=== PATIENT | male | born 1960 | race Caucasian/White ===

== ENCOUNTER 2016-08-08 12:44 | Day surgery (SDC) | payer MEDICARE ==
[~2016-08-08 12:44] MED LIST: DIPRIVAN 200 MG/20 ML IV ONE; Depo-Medrol 80 MG/ML IM ONE; KEFZOL 1 GM IJ ONE; Ketamine HCl 50 MG/ML IV ONE; SUBLIMAZE 100 MCG/2 ML IV ONE; Sensorcaine 0.25% 10 ML IJ ONE; Sodium Chloride 0.9(Preservative Free) 10 ML IJ ONE
[2016-08-08] MEDS ORDERED: Lactated Ringers 1,000 ML IV SCH (13:30)
[2016-08-08 14:06] VITALS: BP 154/95; PULSE 63; O2SAT 96
--- NOTE | 2016-08-08 16:42 | XRAY ---
31 seconds fluoro time in surgery for L4-L5 translaminar FRAN.
--- NOTE | 2016-08-08 16:53 | XRAY ---
Indication: Left L4-L5 FRAN. Intraoperative fluoroscopy was provided for 31 seconds. Single lateral digital spot image of the lumbosacral junction submitted for interpretation demonstrates posterior spinal needle with the tip projecting posterior to the lumbosacral interspace. Small amount of contrast injected for needle tip placement. Correlate with intraoperative findings/report.
== END 2016-08-08 16:10 | disposition home or self-care (01) ==
LOC: SDC-PAIN 12:44
PROVIDERS: ATTEND Pain Medicine Interventional Pain Medicine
DX: M54.16 Radiculopathy, lumbar region (principal); M48.06 Spinal stenosis, lumbar region; M54.5 Low back pain
CPT/HCPCS: 01992; 62323; 72020; 77003; J0690; J1040; J2704; J3010; Q9967

== ENCOUNTER 2016-12-12 13:36 | Day surgery (SDC) | payer MEDICARE ==
[~2016-12-12 13:36] MED LIST changes: -Depo-Medrol 80 MG/ML IM ONE; -KEFZOL 1 GM IJ ONE; +Kenalog-40 IM ONE; -Ketamine HCl 50 MG/ML IV ONE; +Lactated Ringers 1,000 ML IV ONE; -Sodium Chloride 0.9(Preservative Free) 10 ML IJ ONE
--- NOTE | 2016-12-12 17:19 | XRAY ---
8 seconds fluoroscopy time in surgery for right side L2-5 MBB.
--- NOTE | 2016-12-14 02:50 | XRAY ---
Indication: Right L2-L5 MBB. Intraoperative fluoroscopy was provided for 8 seconds. Single digital spot image submitted for interpretation demonstrates posterior spinal needles with the tips projected over the expected course of the right L2-L5 nerve roots. Correlate with intraoperative findings/report.
== END 2016-12-12 15:30 | disposition home or self-care (01) ==
LOC: SDC-PAIN 13:36
PROVIDERS: ATTEND Pain Medicine Interventional Pain Medicine
DX: M47.816 Spondylosis without myelopathy or radiculopathy, lumbar region (principal); M54.16 Radiculopathy, lumbar region; M48.06 Spinal stenosis, lumbar region; M54.5 Low back pain; Z79.891 Long term (current) use of opiate analgesic
CPT/HCPCS: 64493; 64494; 64495; 72020; 77003; J2704; J3010; J3301

== ENCOUNTER 2017-09-11 11:35 | Day surgery (SDC) | payer MEDICARE ==
[2017-09-11] MEDS ORDERED: DIPRIVAN 200 MG/20 ML IV ONE (11:36)
[2017-09-11] MEDS ORDERED: Lactated Ringers 1,000 ML IV ONE (11:36)
[2017-09-11] MEDS ORDERED: Marcaine 0.5% SDV 10 ML IJ ONE (11:36)
[2017-09-11] MEDS ORDERED: Xylocaine 1% Vial 30 ML PF IJ ONE (11:36)
--- NOTE | 2017-09-11 14:26 | XRAY ---
Indication: Right L3-L4 MBB. Intraoperative fluoroscopy was provided for 26 seconds. 2 digital spot images submitted for interpretation demonstrates posterior spinal needles with the tips projected over the expected course of the right L3 and L4 nerve roots. Correlate with intraoperative findings/report.
--- NOTE | 2017-09-11 14:52 | XRAY ---
26 seconds fluoroscopy time in surgery for right L3-L4 MBB.
--- NOTE | 2017-09-12 13:13 | OP ---
DATE OF PROCEDURE: 09/11/2017 1250 SURGEON: Michael Carrasco D.O. PREOPERATIVE DIAGNOSIS: Degenerative lumbar spine disease, spondylosis, low back pain. POSTOPERATIVE DIAGNOSIS: Degenerative lumbar spine disease, spondylosis, low back pain. PROCEDURE PERFORMED: Right L4-L3 medial branch block under fluoroscopic guidance. DESCRIPTION OF THE PROCEDURE: The patient was taken to the operating room and placed in the prone position on the table. Skin at the injection site was prepped and draped in sterile fashion. Under fluoroscopy, bony anatomy of the targeted injection site was visualized. Induction agent was given as per anesthesia while vital signs were monitored. Local anesthetic agent of 2 cc of 1% lidocaine preservative free was introduced to anesthetize the skin and the subcutaneous tissue through the injection site. Under fluoroscopic guidance, a #20 gauge standard spinal needle was advanced into the target medial branch through the oblique approach. The preservative free 0.5 cc of 1% lidocaine and 0.5 cc of 0.25 - 0.5% Marcaine were injected into each of the targeted medial branch nerve. After the needle was being removed, the skin was cleansed with alcohol and then a bandage was applied. No complications or adverse consequences were observed. The patient was returned to the holding area until stabilized before discharge to home. After the patient had been fully recovered from anesthesia, the patient states 100% pain reduction after the procedure. The patient will be followed up within ten days after the injection for re-evaluation.
== END 2017-09-11 14:05 | disposition home or self-care (01) ==
LOC: SDC-PAIN 11:35
PROVIDERS: ATTEND Internal Medicine
DX: M46.96 Unspecified inflammatory spondylopathy, lumbar region (principal); M54.5 Low back pain; M47.816 Spondylosis without myelopathy or radiculopathy, lumbar region; Z79.891 Long term (current) use of opiate analgesic
CPT/HCPCS: 64493; 64494; 72020; 77003; J2001; J2704

== ENCOUNTER 2018-04-30 10:28 | Day surgery (SDC) | payer MEDICARE ==
[2018-04-30] MEDS ORDERED: Xylocaine 1% Vial 30 ML PF IJ ONE (10:29)
[2018-04-30] MEDS ORDERED: Sodium Chloride 0.9(Preservative Free) 10 ML IJ ONE (10:29)
[2018-04-30] MEDS ORDERED: Depo-Medrol 40 MG/ML IM ONE (10:29)
[2018-04-30] MEDS ORDERED: DIPRIVAN 200 MG/20 ML IV ONE (10:29)
[2018-04-30] MEDS ORDERED: Lactated Ringers 1,000 ML IV ONE (10:53)
--- NOTE | 2018-04-30 13:20 | XRAY ---
Indication: Right L3-L4 transforaminal. Intraoperative fluoroscopy was provided for 27 seconds. 2 digital spot images submitted for interpretation and demonstrates posterior spinal needle tips projecting over the expected course of the right L3 and L4 nerve roots. Small amount of contrast injected for needle tip placement. Correlate with intraoperative findings/report.
--- NOTE | 2018-04-30 14:39 | XRAY ---
27 seconds fluoroscopy time used in surgery for right L3-L5 transforaminal injection.
== END 2018-04-30 12:00 | disposition home or self-care (01) ==
LOC: SDC-PAIN 10:28
PROVIDERS: ATTEND Psychiatry & Neurology Pain Medicine
DX: M54.16 Radiculopathy, lumbar region (principal)
CPT/HCPCS: 72020; 76000; J1030; J2001; J2704

== ENCOUNTER 2018-07-02 12:28 | Day surgery (SDC) | payer MEDICARE ==
[2018-07-02] MEDS ORDERED: Depo-Medrol 40 MG/ML IM ONE (12:29)
[2018-07-02] MEDS ORDERED: Sodium Chloride 0.9% 10 ML FLUSH Syringe IJ ONE (12:29)
[2018-07-02] MEDS ORDERED: DIPRIVAN 200 MG/20 ML IV ONE (12:29)
[2018-07-02] MEDS ORDERED: Sodium Chloride 0.9(Preservative Free) 10 ML IJ ONE (12:29)
[2018-07-02] MEDS ORDERED: Versed 2 MG/2 ML Injection IV ONE (12:29)
[2018-07-02] MEDS ORDERED: Lactated Ringers 1,000 ML IV ONE (14:53)
--- NOTE | 2018-07-02 16:14 | XRAY ---
Indication: Right L4-L5 FRAN. Intraoperative fluoroscopy was provided for 18 seconds. Frontal digital spot image submitted for interpretation and demonstrates posterior spinal needle tips along the expected course of the right L4 and L5 nerve roots. Small amount of contrast injected for needle tip placement. Correlate with intraoperative findings/report.
--- NOTE | 2018-07-02 16:22 | XRAY ---
18 seconds fluoroscopy time in surgery for right FRAN.
== END 2018-07-02 14:35 | disposition home or self-care (01) ==
LOC: SDC-PAIN 12:28
PROVIDERS: ATTEND Psychiatry & Neurology Pain Medicine
DX: M54.16 Radiculopathy, lumbar region (principal)
CPT/HCPCS: 64483; 64484; 72020; 77003; J1030; J2250; J2704; Q9966

== ENCOUNTER 2018-09-10 09:40 | Day surgery (SDC) | payer MEDICARE ==
[~2018-09-10 09:40] MED LIST changes: -DIPRIVAN 200 MG/20 ML IV ONE; -Kenalog-40 IM ONE; -SUBLIMAZE 100 MCG/2 ML IV ONE; -Sensorcaine 0.25% 10 ML IJ ONE
[2018-09-10] MEDS ORDERED: Ketamine HCl 50 MG/ML IJ ONE (09:41)
[2018-09-10] MEDS ORDERED: DIPRIVAN 200 MG/20 ML IV ONE (09:41)
[2018-09-10] MEDS ORDERED: Xylocaine 1% Vial 30 ML PF IJ ONE (09:41)
[2018-09-10] MEDS ORDERED: Sodium Chloride 0.9% 10 ML FLUSH Syringe IJ ONE (09:41)
[2018-09-10] MEDS ORDERED: Depo-Medrol 40 MG/ML IM ONE (09:41)
--- NOTE | 2018-09-10 12:17 | XRAY ---
13 seconds fluoroscopy time in surgery for L5-S1 FRAN.
--- NOTE | 2018-09-10 12:19 | XRAY ---
Indication: L5-S1 FRAN. Intraoperative fluoroscopy was provided for 13 seconds. 3 digital spot images submitted for interpretation demonstrates midline posterior spinal needle tip projecting just posterior to the lumbosacral junction interspace. Small contrast injected for needle tip placement. Correlate with intraoperative findings/report.
== END 2018-09-10 12:10 | disposition home or self-care (01) ==
LOC: SDC-PAIN 09:40
PROVIDERS: ATTEND Psychiatry & Neurology Pain Medicine
DX: M54.16 Radiculopathy, lumbar region (principal); I10 Essential (primary) hypertension; Z79.899 Other long term (current) drug therapy
CPT/HCPCS: 62323; 72020; 77003; J1030; J2001; J2704; Q9967

== ENCOUNTER 2018-12-03 10:09 | Day surgery (SDC) | payer MEDICARE ==
[2018-12-03] MEDS ORDERED: Ketamine HCl 50 MG/ML IV ONE (10:10)
[2018-12-03] MEDS ORDERED: DIPRIVAN 200 MG/20 ML IV ONE (10:10)
[2018-12-03] MEDS ORDERED: Depo-Medrol 40 MG/ML IM ONE (10:10)
[2018-12-03] MEDS ORDERED: Xylocaine-Mpf 2% 5 Ml Vial IJ ONE (10:10)
[2018-12-03] MEDS ORDERED: Lactated Ringers 1,000 ML IV ONE (14:22)
--- NOTE | 2018-12-03 16:17 | XRAY ---
11 seconds fluoroscopy time in surgery for bilateral L4-S1 MBB.
--- NOTE | 2018-12-04 04:54 | XRAY ---
Indication: Bilateral L4 through S1MBB. Intraoperative fluoroscopy was provided for 11 seconds. A single digital spot image submitted for interpretation demonstrates posterior spinal needle tips projected over the expected course of the left and right L4-S1 nerve roots. Correlate with intraoperative findings/report.
== END 2018-12-03 11:45 | disposition home or self-care (01) ==
LOC: SDC-PAIN 10:09
PROVIDERS: ATTEND Psychiatry & Neurology Pain Medicine
DX: M47.816 Spondylosis without myelopathy or radiculopathy, lumbar region (principal); I10 Essential (primary) hypertension; E78.00 Pure hypercholesterolemia, unspecified; F41.9 Anxiety disorder, unspecified
CPT/HCPCS: 64493; 64494; 72020; 77002; J1030; J2704